=== PATIENT | male | born 1950 | race Caucasian/White ===

== ENCOUNTER 2017-02-21 08:16 | Outpatient (CLI) | payer MEDICARE ==
--- NOTE | 2017-02-21 10:19 | CT ---
CT OF THE CHEST AND ABDOMEN AND PELVIS WITH IV CONTRAST: Date: 02/21/17 INDICATION: History of melanoma. FINDINGS: The 1.1 x 0.9 cm nodule within the right upper lobe is stable. The 8.0 mm pulmonary nodule within the left upper lobe is stable. No new suspicious pulmonary nodule is evident. No enlarged lymph nodes ar e noted. Vascular calcifications of the thoracic aorta are similar. No focal hepatic lesion is evident. Bilateral renal cysts appear similar to the comparison in September. A drenal glands, pancreas, and spleen appear within normal limits. No pathologically enlarged lymph nodes are evident. Postsurgical change involving the lower anterior abdominal wall is similar. Scattered vascular calcifications are present involving the abdominopelvic vasculature. There is a moderate amount of retained stool within the colon. There is postsurgical change of a part ial colectomy with anastomotic suture line seen in the distal transverse colon. The appendix is mary beth l. No drainable fluid collection is evident. There is scattered degenerative and osteoarthritic change. No suspicious osteolytic or osteoblastic l esion is identified. IMPRESSION: 1. Stable examination. Pulmonary nodules within the left and right upper lobe are stable. 2. Stable bilateral renal cysts. 3. Stable postoperative change as above. POS: [facility]
[2017-02-21] MEDS ORDERED: Iopamidol 370 76% 100 ML VIAL ONE (13:53)
== END 2017-02-21 08:17 | disposition home or self-care (01) ==
LOC: CT 08:16
PROVIDERS: ATTEND Internal Medicine Hematology & Oncology
DX: C43.4 Malignant melanoma of scalp and neck (principal); C78.4 Secondary malignant neoplasm of small intestine; N28.1 Cyst of kidney, acquired; R91.8 Other nonspecific abnormal finding of lung field; Z98.890 Other specified postprocedural states
CPT/HCPCS: 71260; 74177

== ENCOUNTER 2017-04-08 16:45 | Emergency (ER) | payer MEDICARE ==
[2017-04-08 17:36] LABS: #Basophils 0.1 thou/uL (0.0-0.2); #Eosinphils 0.1 thou/uL (0.0-0.7); #Lymphocytes 2.6 thou/uL (1.20-3.40); #Monocytes 0.7 thou/uL (0.11-0.59); #Neutrophils 4.7 thou/uL (1.40-6.50); %Basophils 0.9 % (0.0-1.0); %Eosinophils 1.6 % (0.0-10.0); %Neutrophils 57.6 % (42.0-75.0); Hemoglobin 16.6 g/dL (14.0-18.0); Mean Corpuscular HGB CONC 33.1 g/dL (32.0-36.0); Mean Corpuscular Hemoglobin 30.9 pg (27.0-31.0); Mean Corpuscular Volume 93.4 fl (80.0-94.0); Mean Platelet Volume 7.2 fL (7.4-10.4); Platelet Count 158 thou/uL (130-400); RBC Distribution Width 12.3 % (11.5-14.5); Red Blood Cell (RBC) Count 5.37 mill/uL (4.70-6.10); White Blood Cell (WBC) Count 8.1 thou/uL (4.8-10.8)
--- NOTE | 2017-04-08 17:39 | RAD ---
PORTABLE CHEST: 04/08/17 HISTORY: Rapid heart rate. The lungs are clear. No infiltrate. No vascular congestion or edema. Heart size is normal. IMPRESSION: No acute finding. POS: [facility]
[2017-04-08] MEDS ORDERED: Diltiazem HCl 125 MG, Admixture Fee 1 EACH in Sodium Chloride 0.9% 100 ML IVPB SCH (18:00)
[2017-04-08 18:02] LABS: ALT (SGPT) 18 U/L (8-55); AST (SGOT) 20 U/L (5-34); Albumin 4.2 g/dL (3.4-4.8); Alkaline Phosphatase 71 U/L (40-150); Anion Gap 13 mmol/L (10-20); BUN (Urea Nitrogen) 16 mg/dL (8.4-25.7); Bilirubin, Total 0.4 mg/dL (0.2-1.2); CK (CPK) 66 U/L (30-200); Calc. Creatinine Clearance 0 mL/min (70-130); Calcium 9.7 mg/dL (7.8-10.44); Carbon Dioxide 26 mmol/L (23-31); Chloride 104 mmol/L (98-107); Estimated GFR-MDRD 61; Glucose 123 mg/dL (80-115); Potassium 4.7 mmol/L (3.5-5.1); Protein, Total 7.2 g/dL (5.8-8.1); Sodium 138 mmol/L (136-145)
[2017-04-08 18:04] LABS: Troponin I Less than 0.010 ng/mL (< 0.028)
== END 2017-04-08 19:17 | disposition home or self-care (01) ==
LOC: ERS 16:45
DX: I48.91 Unspecified atrial fibrillation (principal); I10 Essential (primary) hypertension; F17.220 Nicotine dependence, chewing tobacco, uncomplicated; Z79.899 Other long term (current) drug therapy
CPT/HCPCS: 36415; 71045; 80053; 82550; 82553; 83735; 84484; 85025; 93005; 96361; 96374; 99406; J7050

== ENCOUNTER 2017-06-06 05:55 | Day surgery (SDC) | payer MEDICARE, OTHER ==
[2017-06-03 13:12] VITALS: BMI 29.5
[2017-06-06 06:45] LABS: #Basophils 0.1 thou/uL (0.0-0.2); #Eosinphils 0.2 thou/uL (0.0-0.7); #Lymphocytes 1.7 thou/uL (1.20-3.40); #Monocytes 0.5 thou/uL (0.11-0.59); #Neutrophils 2.7 thou/uL (1.40-6.50); %Basophils 1.3 % (0.0-1.0); %Eosinophils 3.3 % (0.0-10.0); %Lymphocytes 34.2 % (21.0-51.0); %Monocytes 9.1 % (0.0-10.0); %Neutrophils 52.1 % (42.0-75.0); Hemoglobin 15.2 g/dL (14.0-18.0); Mean Corpuscular Volume 94.1 fl (80.0-94.0); Mean Platelet Volume 6.8 fL (7.4-10.4); Platelet Count 149 thou/uL (130-400); RBC Distribution Width 12.6 % (11.5-14.5); Red Blood Cell (RBC) Count 4.89 mill/uL (4.70-6.10); White Blood Cell (WBC) Count 5.1 thou/uL (4.8-10.8)
[2017-06-06 06:50] LABS: INR-International Normal Ratio 1.1; PTT 27.3 SEC (22.9-36.1); Prothrombin Time 13.8 SEC (12.0-14.7)
[2017-06-06] MEDS ORDERED: Heparin 10,000 UNITS/1 ML VIAL ONE (06:53)
[2017-06-06] MEDS ORDERED: Lidocaine 1% (PF) 30 ML VIAL ONE (06:56)
[2017-06-06 07:07] LABS: Anion Gap 11 mmol/L (10-20); BUN (Urea Nitrogen) 12 mg/dL (8.4-25.7); Calc. Creatinine Clearance 98 mL/min (70-130); Calcium 9.1 mg/dL (7.8-10.44); Carbon Dioxide 27 mmol/L (23-31); Chloride 104 mmol/L (98-107); Estimated GFR-MDRD 80; Glucose 111 mg/dL (80-115); Potassium 4.4 mmol/L (3.5-5.1); Sodium 138 mmol/L (136-145)
[2017-06-06] MEDS ORDERED: Propofol 500 MG/50 ML VIAL ONE (07:55)
[2017-06-06] MEDS ORDERED: Fentanyl 250 MCG/5 ML VIAL ONE (07:55)
[2017-06-06] MEDS ORDERED: Midazolam HCl 2 mg/2 ml Vial ONE (07:55)
[2017-06-06] MEDS ORDERED: Isoproterenol 0.2 MG/1 ML AMP ONE (09:04)
--- NOTE | 2017-06-06 11:38 | OP ---
DATE OF PROCEDURE: 06/06/2017 ELECTROPHYSIOLOGY STUDY ATTENDING PHYSICIAN: Dr. Lisa Johnston and Dr. Lm Vital REASON FOR PROCEDURE: Mr. Blue is a 67-year-old male with a history of sustained supraventricular arrhythmias who has EKG documented SVT here for EP study and possible ablation. PROCEDURE: The patient received deep sedation by Anesthesia specialist. After adequate sedation achieved both femoral venous area was prepped, draped, anesthetized with subcutaneous lidocaine. The left femoral vein was accessed x2 with a 6 and 8 Kosovan short sheath was introduced under ultrasound guidance. The right femoral vein was also accessed x1 with an 8 Kosovan short sheath introduced. Through the left sheath an octapolar catheter was advanced to the right ventricular His bundle and right atrial position. A Decapolar bidirectional CS catheter was placed in the CS. Mapping, pacing and recording was performed in each location. Isuprel was also used throughout the case to induce arrhythmias. FINDINGS: Baseline cycle length 1188 milliseconds, SC 178, QRS 82, QT 431. The AH check 67, HV 49 milliseconds. Sinus node recovery time is 1297 with sinus node recovery time was 200 milliseconds at baseline, AV Wenckebach was found to be 370 milliseconds without evidence of preexcitation, but lab on radioablation was seen at high atrial pacing speeds, especially with Isuprel. Retrograde Wenckebach cycle length was 600 milliseconds at baseline, with Isuprel has improved to 200 milliseconds range. Concentric VA conduction is noted. Dual AV dayna physiology was demonstrated with extra atrial stimulation. Following that, on isuprel with burst atrial pacing induced AV node reentry tachycardia with a very short VA time less than 80 milliseconds. The ventricular overdrive pacing produced VA VA response after entrainment. Following that the ThermoCool SF catheter was advanced to the right atrium. A 3D map of the right atrium, His bundle area and CS positions were obtained. With the radiofrequency ablation of the slow pathway was performed, 7 lesions were delivered with a total heart duration 121 milliseconds. Junctional beats were observed at the slow pathway area during the delivery of the radiofrequency energy. Following that a repeat testing on and off isuprel was performed demonstrating elimination of the slow pathway and no reinduction of the AV node reentry tachycardia was possible. At the end of the case, the cardiac silhouette did not change on fluoroscopy. The sheaths and catheters were removed in the [employer]. CONCLUSION: 1. 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 Inducible AV dayna reentry tachycardia. 3. Slow pathway modification eliminated inducibility of AVNRT tachycardia. 4. Normal sinus dayna and AV dayna function post ablation. 5. LB aberration noted with rapid atrial pacing with normal HV interval. PLAN: Routine post-procedure care. DARIANAD
[2017-06-06] MEDS ORDERED: PHENYLEPHRINE-NS 100 MCG/ML 10 ML SYRINGE ONE (14:51)
[2017-06-06] MEDS ORDERED: ePHEDrine/0.9% NaCl/PF SYRINGE 50 mg/10 ml ONE (14:51)
[2017-06-06] MEDS ORDERED: Lidocaine 2% MPF 10 ML AMP (For Epidural Use) ONE (14:51)
--- NOTE | 2017-06-06 20:06 | EKG ---
Test Reason : POST EP STUDY/ABLATI Blood Pressure : / mmHG Vent. Rate : 058 BPM Atrial Rate : 058 BPM P-R Int : 180 ms QRS Dur : 092 ms QT Int : 444 ms P-R-T Axes : 066 062 044 degrees QTc Int : 435 ms Sinus bradycardia Otherwise normal ECG When compared with ECG of 08-APR-2017 17:48, Vent. rate has decreased BY 29 BPM Confirmed by ANGIE CARLIN, . S. ([id number]) on 06/06/2017 8:06:27 PM Referred By: ALEN Confirmed By:DR. Ramon ADAMS MD
== END 2017-06-06 13:56 | disposition home or self-care (01) ==
LOC: CCL 05:55
PROVIDERS: ATTEND Internal Medicine Clinical Cardiac Electrophysiology
PROC: 4A023FZ Measurement of Cardiac Rhythm, Percutaneous Approach (ICD-10-PCS; principal; 2017-06-06)
PROC: 4A0234Z Measurement of Cardiac Electrical Activity, Percutaneous Approach (ICD-10-PCS; 2017-06-06)
PROC: 02583ZZ Destruction of Conduction Mechanism, Percutaneous Approach (ICD-10-PCS; 2017-06-06)
PROC: 02K83ZZ Map Conduction Mechanism, Percutaneous Approach (ICD-10-PCS; 2017-06-06)
DX: I47.1 Supraventricular tachycardia (principal); I10 Essential (primary) hypertension; F17.290 Nicotine dependence, other tobacco product, uncomplicated; Z79.82 Long term (current) use of aspirin; Z79.899 Other long term (current) drug therapy
CPT/HCPCS: 76942; 80048; 85025; 85610; 85730; 93005; 93613; 93623; 93653; C1730 ×3; C1769; 36415; 93010; J1644; J2001; J2250; J2704; J3010

== ENCOUNTER 2017-08-22 08:26 | Outpatient (CLI) | payer MEDICARE ==
[2017-08-22] MEDS ORDERED: ISOVUE-370 76%-LOCM 1 ML ONE (14:51)
== END 2017-08-22 08:27 | disposition home or self-care (01) ==
LOC: BICCT 08:26
PROVIDERS: ATTEND Internal Medicine Hematology & Oncology
DX: C78.4 Secondary malignant neoplasm of small intestine (principal); C43.4 Malignant melanoma of scalp and neck; R91.8 Other nonspecific abnormal finding of lung field
CPT/HCPCS: 71260; 74160; 82565

== ENCOUNTER 2017-09-06 11:42 | Outpatient (CLI) | payer MEDICARE, OTHER ==
--- NOTE | 2017-09-06 15:15 | PET ---
PET CT: HISTORY: A 67-year-old male with malignant melanoma. Exam was requested for restaging. The patient had resec tion of left upper lobe lung mass on 02/19/16 which was found to be a metastatic malignant melanoma an d also a history of small bowel resection which revealed metastatic melanoma to the small intestine. TECHNIQUE: PET scan with CT attenuation correction was performed from the vertex through the feet following the intravenous administration of 11 mCi [id number] in the right antecubital fossa. Imaging was performed after an uptake interval of 51 minutes. COMPARISON: PET CT dated 05/04/16. FINDINGS: There is continued hypermetabolic activity in the 1 cm left upper lobe nodule with an SUV of 3.2. Th ere has been interval increase in size of the nodule in the anterior aspect of the right upper lobe f rom 7 mm on the previous exam to 2 cm on the current study. This nodule demonstrates increased FDG l ocalization on the current exam with an SUV of 10.8. No dayna hypermetabolism is seen in the neck, chest, axillae, abdomen, pelvis, and inguinal regions o r popliteal regions. No hypermetabolic liver, adrenal, or skeletal lesions are identified. There is physiologic activity in the brain, heart, GI, and tracts. The CT scan used for attenuation demonstrates no evidence of pleural effusions or ascites. Bilateral renal cysts are present. IMPRESSION: Bilateral upper lobe pulmonary metastases. Interval worsening since 05/04/16. POS: [facility]
== END 2017-09-06 11:43 | disposition home or self-care (01) ==
LOC: PET 11:42
PROVIDERS: ATTEND Internal Medicine Hematology & Oncology
DX: C43.4 Malignant melanoma of scalp and neck (principal); C78.02 Secondary malignant neoplasm of left lung; C78.01 Secondary malignant neoplasm of right lung
CPT/HCPCS: 78816; A9552

== ENCOUNTER 2017-11-10 11:28 | Outpatient (CLI) | payer MEDICARE, OTHER ==
--- NOTE | 2017-11-11 11:25 | PET ---
PET CT: HISTORY: 67-year-old male with malignant melanoma. Exam requested for restaging. The patient had a resection o f the left upper lobe lung mass on , which was found to be metastatic malignant melanoma, and also history of small bowel resection which revealed metastatic melanoma to the small intestine. TECHNIQUE: PET scanning with CT attenuation correction was performed from the vertex through the feet following the intravenous administration of 11.5 mCi F18-FDG in the right antecubital fossa. Imaging was perfor med after an uptake interval of 51 minutes. COMPARISON: PET CT dated 09/06/17. FINDINGS: No dayna hypermetabolism is seen in the neck, chest, axilla, abdomen, pelvis, inguinal regions, and p opliteal regions. No hypermetabolic pulmonary nodules, liver, adrenal, or skeletal lesions are seen. The previously noted hypermetabolic activity in the pulmonary nodules has resolved in the interim. There is physiologic activity in the brain, GI and tracts. The CT scan used for attenuation correction demonstrates no evidence of pleural effusions or ascites. Bilateral renal cysts are noted. IMPRESSION: No evidence of metastatic disease. POS: [facility]
== END 2017-11-10 11:29 | disposition home or self-care (01) ==
LOC: PET 11:28
PROVIDERS: ATTEND Internal Medicine Hematology & Oncology
DX: C43.4 Malignant melanoma of scalp and neck (principal)
CPT/HCPCS: 78816; A9552

== ENCOUNTER 2018-03-06 16:51 | Inpatient (IN) | payer MEDICARE, OTHER ==
[2018-03-06] MEDS ORDERED: Ondansetron PF 4 MG/2 ML Vial ONE (17:45)
[2018-03-06] MEDS ORDERED: Morphine 4 MG/ML VIAL ONE ×2 (17:45→19:26)
[2018-03-06 17:47] LABS: #Eosinphils 0.1 thou/uL (0.0-0.7); #Lymphocytes 1.9 thou/uL (1.20-3.40); #Monocytes 0.7 thou/uL (0.11-0.59); #Neutrophils 7.2 thou/uL (1.40-6.50); %Basophils 0.2 % (0.0-1.0); %Eosinophils 0.9 % (0.0-10.0); %Lymphocytes 19.1 % (21.0-51.0); %Monocytes 6.7 % (0.0-10.0); %Neutrophils 73.1 % (42.0-75.0); Hemoglobin 16.8 g/dL (14.0-18.0); Mean Corpuscular HGB CONC 33.8 g/dL (32.0-36.0); Mean Corpuscular Hemoglobin 31.4 pg (27.0-31.0); Mean Corpuscular Volume 92.9 fL (78.0-98.0); Mean Platelet Volume 7.6 fL (7.4-10.4); Platelet Count 154 thou/uL (130-400); RBC Distribution Width 12.4 % (11.5-14.5); Red Blood Cell (RBC) Count 5.36 mill/uL (4.70-6.10); White Blood Cell (WBC) Count 9.8 thou/uL (4.8-10.8)
[2018-03-06 18:01] LABS: Bilirubin Negative (Negative); Blood, Urine Small (Negative); Clarity CLEAR (Clear); Glucose, Urine (Dipstick) Negative (Negative); Leukocyte Negative (Negative); Nitrite Negative (Negative); Protein, Urine (Dipstick) Negative (Neg-Trace); Specific Gravity, Urine 1.025 (1.002-1.036); Urobilinogen 0.2 mg/dL (0.2-1.0); pH, Urine 5.5 (5.0-9.0)
[2018-03-06 18:07] LABS: Bacteria/HPF None Seen HPF (None Seen); Hyaline Casts/LPF 0-3 HYALINE CAST LPF (0-3 Hyaline); Squamous Epithelial None Seen HPF (0-3); WBC/HPF 0-3 HPF (0-3)
[2018-03-06 18:13] LABS: ALT (SGPT) 16 U/L (8-55); AST (SGOT) 19 U/L (5-34); Albumin 4.2 g/dL (3.4-4.8); Alkaline Phosphatase 77 U/L (40-150); Anion Gap 15 mmol/L (10-20); BUN (Urea Nitrogen) 13 mg/dL (8.4-25.7); Bilirubin, Total 0.6 mg/dL (0.2-1.2); Calc. Creatinine Clearance 0 mL/min (70-130); Carbon Dioxide 28 mmol/L (23-31); Chloride 97 mmol/L (98-107); Estimated GFR-MDRD 71; Globulin 3.3 g/dL (2.4-3.5); Glucose 106 mg/dL (80-115); Lipase 36 U/L (8-78); Protein, Total 7.5 g/dL (5.8-8.1); Sodium 136 mmol/L (136-145)
[2018-03-06] MEDS ORDERED: Pantoprazole 40 MG VIAL ONE (19:04)
[2018-03-06] MEDS ORDERED: Pantoprazole 80 MG in Sodium Chloride 0.9% 100 ML IVP SCH (19:15)
--- NOTE | 2018-03-06 19:55 | CT ---
CT OF THE ABDOMEN AND PELVIS WITH IV CONTRAST: Date: 03-06-18 Provided Clinical History: Abdominal pain. FINDINGS: Comparison 07-29-16. The visualized lung bases are free of significant opacity. The solid abdominal organs demonstrate an unchanged CT appearance. There are several loops of adjacent small bowel within the anterior and right midabdomen which are mi ld to moderately dilated measuring up to about 3.4 cm. There is an abrupt transition from this dilate d bowel to a normal caliber at a suture line in the right lower quadrant. There is mural thickening a nd mild noncircumscribed fluid density involving the bowel immediately proximal to the suture line as well as bowel within the right lateral midabdomen. There is no evidence for pneumotosis or portal ve nous gas. There is no evidence for free intraperitoneal air. There is minimal free fluid present with in the pelvis. Vascular calcifications are seen involving the abdominal aorta. The osseous structure demonstrate no concerning lytic or blastic lesions. IMPRESSION: Findings compatible with an early or low grade small bowel obstruction with the obstruction at the le juanjo of the suture line in the right lower quadrant. POS: [facility]
[2018-03-06] MEDS ORDERED: Morphine 4 MG/ML VIAL SLOW IVP PRN (20:44)
[2018-03-06] MEDS ORDERED: Ondansetron PF 4 MG/2 ML Vial IVP PRN (20:45)
[2018-03-06] MEDS ORDERED: Ondansetron ODT 4 MG TAB SL PRN (20:45)
[2018-03-06] MEDS: D5 1/2 NS w/20 mEq KCL 1,000 ML IV SCH (20:57)
[2018-03-06 22:13] VITALS: BMI 28.5
[2018-03-07] MEDS: D5 1/2 NS w/20 mEq KCL 1,000 ML IV SCH ×3 (04:29→20:51)
[2018-03-07] MEDS ORDERED: Ondansetron PF 4 MG/2 ML Vial IVP PRN (12:14)
[2018-03-07] MEDS ORDERED: Morphine 4 MG/ML VIAL IV PRN (12:15)
--- NOTE | 2018-03-07 14:16 | EKG ---
Test Reason : Blood Pressure : / mmHG Vent. Rate : 076 BPM Atrial Rate : 076 BPM P-R Int : 150 ms QRS Dur : 086 ms QT Int : 384 ms P-R-T Axes : 046 049 056 degrees QTc Int : 432 ms Sinus rhythm with Premature supraventricular complexes Otherwise normal ECG Confirmed by KAHLIL CARLIN, JENN ([id number]), senior technical editor CHRISTIANO PLAZA ([id number]) on 03/07/2018 2:15:52 PM Referred By: Confirmed By:JENN GUILLORY MD
[2018-03-08] MEDS: D5 1/2 NS w/20 mEq KCL 1,000 ML IV SCH ×2 (04:53→13:25)
[2018-03-08] MEDS ORDERED: Pantoprazole 40 MG VIAL IVP SCH (09:00)
--- NOTE | 2018-03-08 12:01 | RAD ---
SMALL BOWEL SERIES: History: 67-year-old male with history for follow up small bowel obstruction. Comparison: 05-16-16 FINDINGS: NG tube is in place within the stomach. Gastrografin was introduced through the NG tube. There is pro gression of Gastrografin contrast through the small bowel entering the colon by one hour. No evidence for significant small bowel obstruction. IMPRESSION: No evidence for significant small bowel obstruction. Gastrografin contrast media entered the colon by one hour. POS: [facility]
--- NOTE | 2018-03-08 13:08 | HP ---
ADMISSION DIAGNOSIS: Small bowel obstruction. HISTORY OF PRESENT ILLNESS: The patient is a very pleasant 67-year-old white male, well known to myself. He presented to the emergency room late in the evening of March 06 (Tuesday). He complained of abdominal pain and distention and lack of flatus or bowel movement. He has a history of a small bowel resection and small bowel obstruction. It was concerned that he was having recurrent problem. In the emergency room, CT scan was obtained revealing what appeared to be findings consistent with small bowel obstruction with narrowing at one of his small bowel anastomoses. Nasogastric tube was placed with resolution of much of his abdominal discomfort. Nasogastric tube is continued now from the past day and I have ordered a small bowel follow-through for this morning. PAST MEDICAL HISTORY: 1. Malignant melanoma. 2. Hypertension. 3. Recent history of tachycardia. PAST SURGICAL HISTORY: 1. Two separate laparoscopic-assisted small bowel segmental resections in December 2015. One of these was a site of metastatic malignant melanoma. The other was the site of a Meckel diverticulum. 2. Left upper lobe lung resection in February 2016. 3. Segmental small bowel resection in July 2016 at the site of one of his anastomoses, thought to potentially be stenotic. MEDICATIONS: Metoprolol. ALLERGIES: NO KNOWN DRUG ALLERGIES. PERSONAL AND SOCIAL HISTORY: Does not smoke or drink alcohol. He is . He notes that he has dentures and at times does not chew his food well. REVIEW OF SYSTEMS: Otherwise, unremarkable. FAMILY HISTORY: Noncontributory. PHYSICAL EXAMINATION: VITAL SIGNS: The patient has been afebrile since his admission, pulse is in the 70s, and blood pressure is normal at 119/76. GENERAL: He is a well-developed, well-nourished, pleasant white male, resting in bed, in no acute distress. He is alert and oriented x3. HEAD, EYES, EARS, NOSE, AND THROAT: Unremarkable. NECK: Supple without mass or tenderness. LUNGS: Clear to auscultation throughout. CARDIAC: Regular rate and rhythm without murmur. ABDOMEN: Soft and nontender. This is maybe very mildly distended. Bowel sounds are present and normoactive. His prior incisions are very well healed and difficult to see. EXTREMITIES: Unremarkable. LABORATORY DATA: Admission laboratory studies on March 06 revealed a normal CBC and a normal comprehensive metabolic panel. ASSESSMENT: The patient with small bowel obstruction. This appears to be at one of his anastomoses. It is entirely possible that he has a second episode of anastomotic stenosis, although this would be quite rare. PLAN: Plan is to manage this conservatively with nasogastric tube and Gastrografin small bowel follow-through. If this goes through as anticipated and his diet will be advanced, he will be discharged home. If there is still persistent evidence for obstruction, then he may require surgery. He understands and agrees to proceed in this fashion. Job ID: [id number]
[2018-03-08 16:47] VITALS: BP 129/87; TEMP 98.4
== END 2018-03-08 18:51 | disposition home or self-care (01) | DRG 390 ==
LOC: ERS 16:51 → SURG A 19:34
PROVIDERS: ADMIT Specialist; ATTEND Specialist
PROC: 0D9670Z Drainage of Stomach with Drainage Device, Via Natural or Artificial Opening (ICD-10-PCS; principal; 2018-03-06)
DX: K56.609 Unspecified intestinal obstruction, unspecified as to partial versus complete obstruction (principal); Z90.49 Acquired absence of other specified parts of digestive tract; I10 Essential (primary) hypertension; Z85.820 Personal history of malignant melanoma of skin; Z90.2 Acquired absence of lung [part of]; Z72.0 Tobacco use
CPT/HCPCS: 74177; 74250; 80053; 81003; 81015; 82550; 83690; 83880; 84484; 85025; 93005; 96361; 96365; 96375; 96376; C9113; J2270; J2405; J7050

== ENCOUNTER 2018-03-16 08:15 | Outpatient (CLI) | payer MEDICARE, OTHER ==
--- NOTE | 2018-03-16 11:50 | PET ---
PET CT WHOLE BODY: COMPARISON: 11/10/2017. CLINICAL HISTORY: Melanoma. RADIOPHARMACEUTICAL: 11.1 mCi fluorine-18 FDG IV injected with 10 cc 0.9% sodium chloride. FINDINGS: There is appropriate biodistribution of radiotracer activity. There is no evidence of a new hypermet abolic mass of the neck, chest, abdomen, and pelvis. The imaged lower extremities do not reveal evid ence of a new hypermetabolic lesion. A focal area of increased metabolic activity about the left iliac chain region likely corresponds to misregistration artifact from the traversing left ureter as there is no soft tissue mass of this ophelia on demonstrated on the attenuation correction CT imaging. Scattered areas of linear parenchymal dens ity are present within the lungs that may relate to scar and/or volume loss. There is diffuse vascul ar calcification. Prior dilated loop of bowel at the low abdomen/pelvis has resolved. IMPRESSION: No scintigraphic evidence of metabolically active disease/melanotic metastasis. POS: [facility]
== END 2018-03-16 08:16 | disposition home or self-care (01) ==
LOC: PET 08:15
PROVIDERS: ATTEND Internal Medicine Hematology & Oncology
DX: C43.9 Malignant melanoma of skin, unspecified (principal)
CPT/HCPCS: 78816; A9552; 80053; 82248; 83615; 84100; 84443; 84550

== ENCOUNTER 2018-03-23 10:38 | Outpatient (CLI) | payer MEDICARE, OTHER ==
--- NOTE | 2018-03-23 12:09 | RAD ---
RIGHT KNEE TWO VIEWS: History: Chronic pain. Comparison: None. FINDINGS: Mild to moderate degenerative change involving the medial compartment. No significant joint effusion. No fracture. IMPRESSION: Mild to moderate degenerative change involving the medial compartment. POS: [facility]
--- NOTE | 2018-03-23 12:28 | RAD ---
TWO VIEWS LEFT KNEE: HISTORY: Chronic pain. COMPARISON: None. FINDINGS: Moderate degenerative changes involving the medial compartment. No fracture or malalignment. No sig nificant joint effusion. IMPRESSION: Moderate degenerative change involving the medial compartment. POS: [facility]
== END 2018-03-23 10:39 | disposition home or self-care (01) ==
LOC: SCSRAD 10:38
PROVIDERS: ATTEND Family Medicine
DX: M25.562 Pain in left knee (principal); M17.0 Bilateral primary osteoarthritis of knee

== ENCOUNTER 2018-07-11 11:31 | Outpatient (CLI) | payer MEDICARE, OTHER ==
--- NOTE | 2018-07-11 15:09 | PET ---
PET WITH CT WHOLE BODY: Clinical history: Melanoma Reference is made to 03/16/2018. Radiopharmaceutical: 12.4 mCi fluorine 18 FDG IV. There is appropriate biodistribution of radiotracer activity FINDINGS: There is mild increased metabolic activity, localizing to the left external auditory canal, without a n obvious mass by CT imaging. Finding is new from prior, with mild hypermetabolism (SUV of 3). There is increased activity likely localizing to the bilateral extraocular muscles, given symmetric a ppearance and distribution of activity, likely due to ocular movement during the exam. A new focus of mildly increased metabolic activity measuring 1.75 SUV is present and correlates to a new, small l inear density of the anterior right upper lobe. No additional significant interval detrimental change. IMPRESSION: 1. New area of hypermetabolic activity localizing to left external auditory canal, nonspecific. No ob vious mass of this region is evident by attenuation correction noncontrast CT imaging. Recommend correlation with direct visualization utilizing otoscopic examination to exclude possibility of a dev eloping cutaneous lesion in light of the patient's history. 2. Newly developed small linear focus of opacity of the anterior right upper lobe which reveals mild increased metabolic activity. This may relate to interval residua of recent infectious/inflammatory process. As a conservative measure, a three-month follow-up CT thorax is warranted to confirm resolut ion. Transcribed Date/Time: 07/11/2018 3:22 PM
== END 2018-07-11 11:32 | disposition home or self-care (01) ==
LOC: PET 11:31
PROVIDERS: ATTEND Internal Medicine Hematology & Oncology
DX: C43.9 Malignant melanoma of skin, unspecified (principal); R91.8 Other nonspecific abnormal finding of lung field
CPT/HCPCS: 78816; A9552

== ENCOUNTER 2018-12-12 11:14 | Outpatient (CLI) | payer MEDICARE, OTHER ==
--- NOTE | 2018-12-12 13:27 | RAD ---
CHEST TWO VIEWS: HISTORY: Melanoma of scalp and neck. Chronic cough. COMPARISON: 11/14/2018 FINDINGS: Fairly extensive bilateral poorly circumscribed linear and nodular parenchymal changes in both lungs, showing considerable worsening when compared to the prior CT scan of 11/14/2018. Findings suggest ei ther marked worsening of metastasis or inflammatory/infectious changes. IMPRESSION: Marked worsening of bilateral poorly circumscribed nodular and linear and interstitial opacity change s throughout both lungs, concerning for considerable worsening of bilateral metastatic disease and/or inflammatory or infectious changes. Correlate clinically. Short term followup for clearing or stabil ity. POS: [facility]
== END 2018-12-12 11:15 | disposition home or self-care (01) ==
LOC: SCSRAD 11:14
PROVIDERS: ATTEND Family Medicine
DX: R05 Cough (principal)
CPT/HCPCS: 71046

== ENCOUNTER 2018-12-27 07:59 | Outpatient (CLI) | payer MEDICARE, OTHER ==
[2018-12-27] MEDS ORDERED: ISOVUE-370 76%-LOCM 1 ML ONE (10:10)
--- NOTE | 2018-12-27 10:27 | CT ---
CT CHEST WITH INTRAVENOUS CONTRAST ENHANCEMENT: HISTORY: Melanoma of the scalp and neck. Followup. COMPARISON: 11/14/2018 FINDINGS: There has been significant worsening in the alveolar lung opacities, which are more peripheral in jay entation, involving both the upper and lower lung jack. There are small mediastinal nodes. All thes e are subcentimeter in size, slightly increased in number as compared to the prior exam, probably jus t reactive. No significant hilar or axillary adenopathy. There are tiny pleural effusions seen. The visualized liver parenchyma is unremarkable. Hypodensities involving both kidneys appear to repre sent cysts. Review of osseous structures show no lytic or blastic bony change. IMPRESSION: Significant worsening to bilateral upper and lower lobe alveolar opacities. Given the somewhat remote history of immunotherapy I would think this unlikely to represent an immunotherapy induced pneumonit is, although this would be a consideration. I think one of the more likely possibilities of this woul d be that this represents an organizing pneumonia. Obviously if the patient has symptoms then diffuse bacterial infection would also be a consideration. These findings were discussed with Dr. Berg. CODE CR POS: [facility]
== END 2018-12-27 08:00 | disposition home or self-care (01) ==
LOC: BICCT 07:59
PROVIDERS: ATTEND Internal Medicine Hematology & Oncology
DX: C43.4 Malignant melanoma of scalp and neck (principal); C78.4 Secondary malignant neoplasm of small intestine
CPT/HCPCS: 71260; Q9966

== ENCOUNTER 2019-01-01 09:56 | Outpatient (CLI) | payer MEDICARE, OTHER ==
--- NOTE | 2019-01-01 10:28 | RAD ---
2 views chest: 01/01/2019 COMPARISON: 12/12/2018 HISTORY: Shortness of breath FINDINGS: Numerous ill-defined nodular areas of alveolar opacity are noted, right greater than left, demonstrating a similar distribution when compared to the 12/12/2018 examination. There is no pneumothorax or pleural fluid. Heart and mediastinal contours appear stable. IMPRESSION: Nonspecific ill-defined pulmonary parenchymal opacities are noted within both lungs, righ t greater than left, unchanged when compared to the 12/12/2018 examination. These findings are better assessed on the 12/27/2018 CT exam. This could represent a diffuse nonspecific inflammatory/inf ectious process. Malignancy certainly cannot be excluded on the basis of this exam.
== END 2019-01-01 09:57 | disposition home or self-care (01) ==
LOC: RAD 09:56
PROVIDERS: ATTEND Internal Medicine Critical Care Medicine
DX: R06.00 Dyspnea, unspecified (principal)
CPT/HCPCS: 71046

== ENCOUNTER 2019-01-04 14:25 | Inpatient (IN) | payer MEDICARE, OTHER ==
[2019-01-04] MEDS ORDERED: Phenergan/Codeine 10-6.25mg/5ml UDCUP PO PRN (15:10)
[2019-01-04] MEDS ORDERED: Benzonatate 100 MG CAP PO SCH (15:15)
[2019-01-04] MEDS ORDERED: Famotidine 20 MG TAB PO SCH (15:15)
[2019-01-04 15:32] LABS: Hemoglobin 17.4 g/dL (14.0-18.0); Mean Corpuscular HGB CONC 33.9 g/dL (32.0-36.0); Mean Corpuscular Hemoglobin 30.4 pg (27.0-31.0); Mean Corpuscular Volume 89.6 fL (78.0-98.0); Mean Platelet Volume 6.8 fL (7.4-10.4); Platelet Count 262 thou/uL (130-400); RBC Distribution Width 13.1 % (11.5-14.5); Red Blood Cell (RBC) Count 5.73 mill/uL (4.70-6.10); White Blood Cell (WBC) Count 14.9 thou/uL (4.8-10.8)
[2019-01-04 15:51] LABS: Band 9 % (5-11); Lymphocytes 9 % (21-51); MDiff Complete? YES; Neutrophil 80 % (42-75); Platelet Morphology Comment Appears Adequate; RBC Morphology Normal; Reactive Lymphocytes 2 % (0-10)
[2019-01-04 15:54] LABS: ALT (SGPT) 26 U/L (8-55); AST (SGOT) 18 U/L (5-34); Albumin 3.9 g/dL (3.4-4.8); Alkaline Phosphatase 77 U/L (40-110); Anion Gap 16 mmol/L (10-20); BUN (Urea Nitrogen) 16 mg/dL (8.4-25.7); Bilirubin, Total 0.5 mg/dL (0.2-1.2); Calc. Creatinine Clearance 0 mL/min (70-130); Calcium 8.7 mg/dL (7.8-10.44); Carbon Dioxide 22 mmol/L (23-31); Chloride 99 mmol/L (98-107); Estimated GFR-MDRD 72; Globulin 3.2 g/dL (2.4-3.5); Glucose 126 mg/dL (80-115); Magnesium 2.1 mg/dL (1.6-2.6); Phosphorus 4.3 mg/dL (2.3-4.7); Potassium 4.5 mmol/L (3.5-5.1); Protein, Total 7.1 g/dL (5.8-8.1); Sodium 132 mmol/L (136-145)
[2019-01-04] MEDS: Cefepime 2 GM in Sodium Chloride 0.9% 100 ML IVPB SCH ×2 (16:56→22:36)
[2019-01-04] MEDS: methylPREDNISolone Sod Succ 40 MG VIAL IVP SCH ×2 (16:57→20:25)
[2019-01-04] MEDS: Sodium Chloride 0.9% 1,000 ML IV SCH (17:03)
[2019-01-04 17:45] VITALS: BMI 27.0
[2019-01-04] MEDS: Benzonatate 100 MG CAP PO SCH (20:24)
[2019-01-04] MEDS: Famotidine 20 MG TAB PO SCH (20:24)
--- NOTE | 2019-01-04 20:52 | HP ---
DATE: 01/04/2019 HISTORY OF PRESENT ILLNESS: Su is a pleasant 68-year-old male, history of melanoma. He has had melanoma involving bowel and lung and actually has responded very well to immunotherapy. He recently had asymptomatic subtle abnormality on chest CT. A repeat chest CT was ordered a month later. Shortly after the 1st CT, he started developing a bad cough and this has progressed. He was seen by Dr. Berg last week, started on steroids and antibiotics, and seen by me early this week. He thought maybe he was feeling a little bit better and certainly no worse. Chest radiograph compared to the last film also looked slightly improved. He called today saying he in spite of the antibiotics and steroids he received, thinks he is coughing more. His thinks he is coughing more and looks worse. 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 His first melanoma was on his neck. Second one was in his small bowel, and the third one was in the lung. FAMILY HISTORY: Not obtained. SOCIAL HISTORY: Drinks occasionally. He is nonsmoker. ALLERGIES: HE HAS NO DRUG ALLERGIES. REVIEW OF SYSTEMS: A 10-point review of systems completed is otherwise negative , remarkable only for cough. He has had no hemoptysis. PHYSICAL EXAMINATION: GENERAL: He has had melanoma involving bowel and lung and actually has responded very well to immunotherapy. VITAL SIGNS: Blood pressure is 130/80, pulse is 100, respiratory rate is 18, oximetry is 90% to 92% on room air in the office. HEENT: Pupils are equal. Sclerae are anicteric. NECK: Supple. LUNGS: Clear. HEART: Regular rhythm. S1 and S2 are normal. ABDOMEN: Soft and nontender. EXTREMITIES: Without clubbing, cyanosis, or edema. LABORATORY DATA: CT and chest radiographs have been reviewed with him. IMPRESSION: ? pneumonia versus bronchiolitis obliterans versus recurrence of melanoma. It would be extremely unusual for him to have recurrence of melanoma that made his radiograph this abnormal over a 1-month period of time. A delayed pneumonitis secondary to immunotherapy at this point would be unusual since he has been off immunotherapy since July. I do not think we have any choice other than to put him in the hospital at this point, try to suppress his cough, treat him with broad-spectrum antimicrobial therapy, increase his IV steroids, stat nebulizer treatments since he is complaining of a tight feeling in his chest and have him undergo bronchoscopy tomorrow with possible biopsies and washings. Risks of bleeding, infection, lung collapse and least likely were explained. He will likely need airway support with the procedure, i.e., intubation. We will have Anesthesia assist with the procedure. Job ID: [id number] MTDD
[2019-01-05] MEDS: methylPREDNISolone Sod Succ 40 MG VIAL IVP SCH ×4 (02:09→20:41)
[2019-01-05] MEDS: Sodium Chloride 0.9% 1,000 ML IV SCH ×3 (05:15→20:41)
[2019-01-05] MEDS: Cefepime 2 GM in Sodium Chloride 0.9% 100 ML IVPB SCH ×3 (05:57→23:00)
[2019-01-05] MEDS ORDERED: Fentanyl 100 MCG/2 ML VIAL ONE (07:48)
[2019-01-05] MEDS ORDERED: Midazolam HCl 2 mg/2 ml Vial ONE (07:48)
[2019-01-05] MEDS ORDERED: Prevnar 13-Val Conj/PF 0.5 ML SYRINGE IM ONE (09:00)
[2019-01-05] MEDS: Benzonatate 100 MG CAP PO SCH ×3 (09:00→20:40)
[2019-01-05] MEDS ORDERED: FLU VACC TS2019-20(65YR UP)/PF 180 MCG/0.5 ML SYRINGE IM ONE (09:00)
--- NOTE | 2019-01-05 10:04 | RAD ---
RADIOGRAPH CHEST 1 VIEW: DATE: 01/05/2019 TIME: 9:26 AM HISTORY: 68 year old male status post bronchoscopy COMPARISON: 01/01/2019 FINDINGS: Multifocal patchy ill-defined nodular bilateral infiltrates, more confluent on the right than left. T he confluence has worsened at the right base. No pneumothorax. No pulmonary edema. No other interval change. IMPRESSION: 1. No pneumothorax. 2. Multifocal bilateral patchy infiltrates. 3. Interval worsening of confluence of infiltrates at right base.
[2019-01-05] MEDS: Famotidine 20 MG TAB PO SCH ×2 (11:07→20:40)
[2019-01-05] MEDS ORDERED: Ondansetron PF 4 MG/2 ML Vial ONE (13:13)
[2019-01-05] MEDS ORDERED: Lidocaine 1% PF 5 ML VIAL ONE (13:13)
[2019-01-05] MEDS ORDERED: PROPOFOL 200 MG/20 ML VIAL ONE (13:13)
[2019-01-05] MEDS ORDERED: Rocuronium Bromide 10 MG/ML (10ML VIAL) ONE (13:13)
[2019-01-05] MEDS ORDERED: Glycopyrrolate 0.2 MG/ML 5 ML SYRINGE ONE (13:13)
[2019-01-05 13:14] LABS: Bilirubin Negative (Negative); Blood, Urine Negative (Negative); Clarity Clear (Clear); Glucose, Urine (Dipstick) Normal (Negative); Leukocyte Negative Leu/uL (Negative); Nitrite Negative (Negative); Protein, Urine (Dipstick) 20 mg/dL (Neg-Trace); Urobilinogen Normal mg/dL (Less than 2)
--- NOTE | 2019-01-05 15:20 | OP ---
DATE OF PROCEDURE: 01/05/2019 PROCEDURES PERFORMED: Fiberoptic bronchoscopy with a lavage of the right middle lobe, brushings to right lower lobe, multiple biopsies to right lower lobe. DESCRIPTION OF PROCEDURE: The patient was sedated after being identified in the Day Surgery area and consent forms were signed. He was sedated with Anesthesia. He was under general endotracheal anesthesia. Under fluoroscopy, the bronchoscope was introduced and passed down the right middle lobe. Right middle lobe was lavaged with approximately 80 mL of saline, approximately 30 mL returned. The right lower lobe was brushed for pathology. Then, the right lower lobe was biopsied x3 for pathology. The patient tolerated the procedure well. There was minimal bleeding from right lower lobe. This had stopped by the completion of the procedure. Quick look with fluoro did not show pneumothorax. We will do a chest x-ray when he returns to PACU. Job ID: [id number]
[2019-01-06] MEDS: methylPREDNISolone Sod Succ 40 MG VIAL IVP SCH ×4 (03:25→19:50)
[2019-01-06] MEDS: Cefepime 2 GM in Sodium Chloride 0.9% 100 ML IVPB SCH ×3 (06:05→22:55)
[2019-01-06] MEDS: Famotidine 20 MG TAB PO SCH ×2 (09:22→19:50)
[2019-01-06] MEDS: Enoxaparin Sodium 40 MG/0.4 ML SYRINGE SC SCH (09:23)
[2019-01-06] MEDS: Benzonatate 100 MG CAP PO SCH ×3 (09:23→19:50)
--- NOTE | 2019-01-06 12:56 | PRG ---
DATE OF SERVICE: 01/06/2019 SUBJECTIVE: This morning, he is awake, alert, and responsive. OBJECTIVE: VITAL SIGNS: His sats are 93% on room air, pulse 103, temperature 98, blood pressure 130/70. HEENT: He is short of breath. CHEST: No wheezing or crackles. CARDIAC: Normal S1 and S2. No gallops. ABDOMEN: No masses. IMPRESSION: Abnormal x-ray, bilateral interstitial infiltrates, etiology unclear. History of melanoma. Pulmonary adrian, continue supportive care. Await path. Job ID: [id number]
[2019-01-06] MEDS: Sodium Chloride 0.9% 1,000 ML IV SCH (13:11)
[2019-01-07] MEDS: methylPREDNISolone Sod Succ 40 MG VIAL IVP SCH ×2 (03:16→09:38)
[2019-01-07] MEDS: Cefepime 2 GM in Sodium Chloride 0.9% 100 ML IVPB SCH (06:29)
[2019-01-07] MEDS: Benzonatate 100 MG CAP PO SCH ×3 (09:36→20:05)
[2019-01-07] MEDS: Famotidine 20 MG TAB PO SCH ×2 (09:36→20:05)
[2019-01-07] MEDS: Enoxaparin Sodium 40 MG/0.4 ML SYRINGE SC SCH (09:37)
--- NOTE | 2019-01-07 11:46 | PRG ---
DATE OF SERVICE: 01/07/2019 SUBJECTIVE: John Blue this morning is awake, alert, and responsive. He is less short of breath. OBJECTIVE: VITAL SIGNS: Saturations 100% on room air, temperature 97, blood pressure 147/79, respirations 18. CHEST: No wheezing or crackles. CARDIAC: Normal S1 and S2. No gallops. ABDOMEN: No masses. IMPRESSION AND PLAN: Diffuse belly infiltrates, etiology unclear. We will switch him over to oral antibiotics since all cultures are negative and prednisone. Await biopsy results. Job ID: [id number]
[2019-01-08] MEDS ORDERED: predniSONE 20 MG TAB PO SCH (08:00)
[2019-01-08] MEDS: Benzonatate 100 MG CAP PO SCH ×2 (08:59→15:10)
[2019-01-08] MEDS: Enoxaparin Sodium 40 MG/0.4 ML SYRINGE SC SCH (08:59)
[2019-01-08] MEDS: Famotidine 20 MG TAB PO SCH (08:59)
[2019-01-08 14:09] LABS: Cytoplasmic (C-ANCA) <1:20 titer (Neg:<1:20); Myeloperoxidase AutoAbs <9.0 U/mL (0.0-9.0); Perinuclear (P-ANCA) <1:20 titer (Neg:<1:20); Proteinase-3 AutoAbs Less than 3.5 U/mL (0.0-3.5)
[2019-01-08 15:26] VITALS: BP 154/88; TEMP 97.9
--- NOTE | 2019-01-08 20:14 | DIS ---
DATE OF ADMISSION: 01/04/2019 DATE OF DISCHARGE: 01/08/2019 DISCHARGE DIAGNOSIS: Keytruda pneumonitis. Please see history and physical for details. HOSPITAL COURSE: Briefly, Mr. Blue failed outpatient management of his severe cough with radiographic abnormalities. He was admitted, underwent bronchoscopy with transbronchial biopsies, brushings, and lavage. No pathogens were identified. All specimens were negative for malignancy. To refresh, he has had 3 different bouts of melanoma. He is discharged home on 40 mg of prednisone twice a day. He has had a 10-day course of antibiotics at this point, so I do not feel ongoing antibiotics are indicated. He will follow up with me in one week with a chest x-ray. Job ID: [id number]
--- NOTE | 2019-01-10 07:48 | PQF ---
[employer] Win[employer] Viewer JOSE BOWERS PERNELL PIERRE MD [id number] CLINICAL DOCUMENTATION CLARIFICATION FORM: POST DISCHARGE Addendum to original discharge summary date: ____ Late entry note date: __ DATE: 01/10/2019 ATTN:PERNELL PIERRE MD Please exercise your independent, professional judgment in responding to the clarification form. Clinical indicators are provided on the bottom of this form for your review Please check appropriate box(s): [ ] Biopsy of right lower lobe lung [ ] Biopsy of right lower lobe bronchus [ ] Biopsy of right lung [ ] Other site [ ] Unable to determine For continuity of documentation, please document condition throughout progress notes and discharge summary. Thank You. CLINICAL INDICATORS - SIGNS / SYMPTOMS / LABS -Multiple biopsies to the lower lobe- OP report, 01/05, PERNELL PIERRE MD -Bronchoscope was introduced and passed down the right middle lobe, Right middle lobe was lavaged-OP report, 01/05, PERNELL PIERRE MD -The right lower lobe was brushed for pathology, then the right lower lobe biopsied x3 for pathology-OP report, 01/05, PERNELL PIERRE MD -Lung right, transbronchial biopsy: being bronchial epithelium and stroma- Pathology report, 01/08 RISK FACTORS - Keytruda pneumonitis-DS, 01/08, Miguelangel Malcolm MD - he had 3 different bouts of melanoma-DS, 01/08, Miguelangel Malcolm MD TREATMENTS: -Chest-Xray -Bronchoscopy-OP report, 01/05, Miguelangel Malcolm MD [employer] (This form is maintained as a part of the permanent medical record) 2014 [employer]. All Rights Reserved Blanca Salcedo [not provided] [not provided] MTDD
[2019-01-10 09:11] LABS: Aspergillus fumigatus Negative (Negative); Aureobasidium pullalans IgG Negative (Negative); Micropolyspora faeni Negative (Negative); Pigeon Droppings IgG Negative (Negative); T sacchari Negative (Negative); T vulgaris Negative (Negative)
[2019-01-10 09:11] LABS: Fungus Stain Final report (.)
[2019-01-10 19:08] LABS: A. flavus Negative (Neg:<1:1); A. fumigatus Negative (Neg:<1:1); A. niger Negative (Neg:<1:1); Blastomyces AB Negative (Neg:<1:1)
== END 2019-01-08 15:40 | disposition home or self-care (01) | DRG 206 ==
LOC: T4-A 14:31
PROVIDERS: ADMIT Internal Medicine Critical Care Medicine; ATTEND Internal Medicine Critical Care Medicine
PROC: 0B9D8ZX Drainage of Right Middle Lung Lobe, Via Natural or Artificial Opening Endoscopic, Diagnostic (ICD-10-PCS; principal; 2019-01-05)
PROC: 0BD68ZX Extraction of Right Lower Lobe Bronchus, Via Natural or Artificial Opening Endoscopic, Diagnostic (ICD-10-PCS; 2019-01-05)
DX: J70.4 Drug-induced interstitial lung disorders, unspecified (principal); I10 Essential (primary) hypertension; T45.1X5A Adverse effect of antineoplastic and immunosuppressive drugs, initial encounter; Z85.820 Personal history of malignant melanoma of skin; Z98.42 Cataract extraction status, left eye
CPT/HCPCS: 36415; 71045; 71046; 76000; 80053; 81003; 83520; 83735; 84100; 85007; 85027; 85652; 86256; 86331; 86602; 86606; 86612; 86635; 86671; 86698; 87070; 87102; 87116; 87205; 87206; 87385; 88112; 88305; 88312; 94640; 94760; J0692; J1650; J1956; J2001; J2250; J2405; J2704; J2920; J3010; J3490; J7512; J7620

== ENCOUNTER 2019-01-16 08:07 | Outpatient (CLI) | payer MEDICARE, OTHER ==
--- NOTE | 2019-01-16 08:25 | RAD ---
XR Chest Pa Lat @ [facility] History: Dyspnea Comparison: Radiograph January 05, 2019 Findings: Improved aeration of both lungs. These be some linear markings throughout the right middle lobe and right lower lobe. No pneumothorax. No acute osseous abnormality. Impression: Improved aeration suggesting resolving organizing pneumonia or therapy induced pneumoniti s. Metastatic hemorrhage is felt less likely.
== END 2019-01-16 08:08 | disposition home or self-care (01) ==
LOC: RAD 08:07
PROVIDERS: ATTEND Internal Medicine Critical Care Medicine
DX: R06.00 Dyspnea, unspecified (principal); R04.89 Hemorrhage from other sites in respiratory passages
CPT/HCPCS: 71046

== ENCOUNTER 2019-01-23 09:14 | Outpatient (CLI) | payer MEDICARE ==
--- NOTE | 2019-01-23 10:17 | RAD ---
CHEST TWO VIEWS: HISTORY: Dyspnea. COMPARISON: Radiograph from 01/16/2019 FINDINGS: Continued signs of improved aeration of the lungs. No pneumothorax. No effusion. No acute superimpose d opacity. IMPRESSION: Continued improvement in aeration of the lungs. Some linear opacities still persist over the lingula and right lower lobe which may reflect developing scar. POS: [facility]
== END 2019-01-23 09:15 | disposition home or self-care (01) ==
LOC: RAD 09:14
PROVIDERS: ATTEND Internal Medicine Critical Care Medicine
DX: R06.00 Dyspnea, unspecified (principal); R91.8 Other nonspecific abnormal finding of lung field
CPT/HCPCS: 71046

== ENCOUNTER 2019-02-05 09:38 | Outpatient (CLI) | payer MEDICARE, OTHER ==
--- NOTE | 2019-02-05 09:45 | RAD ---
CHEST 2 VIEWS: COMPARISON: 01/23/2019. HISTORY: Dyspnea. FINDINGS: Elongation of the aorta. Normal cardiac silhouette. Patchy interstitial and alveolar opacities. Opaci fication is felt to be superimposed upon chronic change. No pleural effusion or pneumothorax. IMPRESSION: Patchy interstitial and alveolar opacities. Transcribed Date/Time: 02/05/2019 9:48 AM
== END 2019-02-05 09:39 | disposition home or self-care (01) ==
LOC: RAD 09:38
PROVIDERS: ATTEND Internal Medicine Critical Care Medicine
DX: R06.00 Dyspnea, unspecified (principal); J98.4 Other disorders of lung
CPT/HCPCS: 71046

== ENCOUNTER 2019-05-09 09:49 | Outpatient (CLI) | payer MEDICARE, OTHER ==
--- NOTE | 2019-05-09 10:50 | RAD ---
PA AND LATERAL CHEST: Date: 05/09/2019 HISTORY: Dyspnea. COMPARISON: 02/05/19 study. FINDINGS: Heart size within normal limits. Aorta is tortuous. There is some atherosclerotic change. Lungs are c lear of any infiltrates. There are arthritic changes of the spine. IMPRESSION: No active intrathoracic disease. Interstitial changes noted on the prior examination have essentially resolved. POS: [facility]
== END 2019-05-09 09:50 | disposition home or self-care (01) ==
LOC: RAD 09:49
PROVIDERS: ATTEND Internal Medicine Critical Care Medicine
DX: R06.00 Dyspnea, unspecified (principal)
CPT/HCPCS: 71046

== ENCOUNTER 2019-06-20 09:33 | Outpatient (CLI) | payer MEDICARE, OTHER ==
[2019-06-20] MEDS ORDERED: Iopamidol 370 76% 100 ML VIAL ONE (10:14)
--- NOTE | 2019-06-20 11:03 | CT ---
CT CHEST WITH CONTRAST CT ABDOMEN WITH COTNRAST CT PELVIS WITH CONTRAST: HISTORY: Malignant neoplasm of scalp. Secondary neoplasm of small intestine. COMPARISON: CT chest 12/27/2018. PET CT 07/11/2018 for reference. FINDINGS: Above the lungs are areas of mosaic attenuation which can be seen with small-vessel or airway disease . The parenchymal opacities are markedly improved from the comparison exam with minimal opacities re maining and likely sequelae of scar or resolving organizing pneumonia. No pneumothorax. No effusion . No concerning new pulmonary nodule. The tracheobronchial tree is patent. The aortic contour is normal. The pulmonary trunk size is norm al. No mediastinal adenopathy. No pericardial effusion. The liver, gallbladder, spleen, and pancreas are unremarkable. The renal cysts are similar. No jagdish d renal mass. No hydroureteral nephrosis. The abdominal aorta contour is without aneurysmal dilatation. Mild atherosclerotic plaque. No dilated loops of large or small bowel. No mesenteric adenopathy. No free intraperitoneal gas or fluid. The right mid abdomen and small anastomosis is unremarkable. Sternum and manubrium are intact. Mode rate degenerative disease of L5-S1 with degenerative disk space height loss and disk-osteophyte compl ex as well as facet arthropathy. No suspicious osteolytic or osteoblastic lesions. Moderate entheso pathic changes of both adductor longus tendons of the prepubic plate. IMPRESSION: 1. Interval resolution of organizing pneumonia with minimal scar remaining. 2. No evidence for metastatic disease within the chest, abdomen, or pelvis. POS: [facility]
== END 2019-06-20 09:34 | disposition home or self-care (01) ==
LOC: BICCT 09:33
PROVIDERS: ATTEND Internal Medicine Hematology & Oncology
DX: C43.4 Malignant melanoma of scalp and neck (principal); C78.4 Secondary malignant neoplasm of small intestine; J18.9 Pneumonia, unspecified organism; L90.5 Scar conditions and fibrosis of skin
CPT/HCPCS: 71260; 74177; Q9967

== ENCOUNTER 2019-09-18 08:14 | Outpatient (CLI) | payer MEDICARE, OTHER ==
--- NOTE | 2019-09-18 09:18 | CT ---
Exam: Chest CT with contrast Abdomen CT with contrast Pelvic CT with contrast HISTORY: Melanoma. Secondary malignant neoplasm of small intestine. Correlation: None COMPARISON: 06/20/2019, chest CT 12/27/2018 FINDINGS: Chest CT: Mediastinum: No mass, lymphadenopathy or hematoma Aorta: Normal caliber. No periaortic fat stranding. Heart: Normal heart size. No significant pericardial fluid Trachea and central bronchi: Patent Pleural spaces: No pleural effusion. Right lung: Minimal scar and atelectasis. Minimal groundglass opacities. No suspicious masses, consol idation or nodules. Left lung:Patchy groundglass opacities in the left upper lobe, unchanged. Minimal scarring and atelec tasis. No suspicious masses, consolidation or nodules. Pneumothorax: None Abdomen CT: Gallbladder: Unremarkable Portal vein: Patent Liver: Appropriate enhancement. Spleen: Appropriate enhancement Pancreas: Appropriate enhancement Adrenal glands: Appropriate enhancement Lymphadenopathy: No gastrohepatic, retrocrural or periportal lymphadenopathy Kidneys: Symmetric enhancement. Bilaterally no obstructive uropathy. Exophytic bilateral renal cysts are redemonstrated. Mesentery: No mass, lymphadenopathy, free air or free fluid Alimentary canal: Unremarkable gastric mucosa. Multiple normal caliber small bowel loops. Small bowel anastomosis is noted in the left upper quadrant. Additional bowel anastomosis is noted in the right. No bowel obstruction. No mucosal abnormality. Normal ileocecal junction. Normal caliber append ix. Scattered fecal material in the nondistended, nondilated colon. Pelvis CT: No mass, lymphadenopathy, free air or free fluid. Normal-appearing urinary bladder. Osseous structures:No lytic or blastic lesions. IMPRESSION: 1. No evidence of metastatic disease in the chest, abdomen or pelvis. 2. Stable groundglass opacities in the left upper lobe likely representing sequelae of previous infil trate.
[2019-09-18] MEDS ORDERED: Iopamidol-370 76% 500 ML 1 ML ONE (13:40)
== END 2019-09-18 08:15 | disposition home or self-care (01) ==
LOC: BICCT 08:14
PROVIDERS: ATTEND Internal Medicine Hematology & Oncology
DX: C43.4 Malignant melanoma of scalp and neck (principal); C78.4 Secondary malignant neoplasm of small intestine; R91.8 Other nonspecific abnormal finding of lung field
CPT/HCPCS: 71260; 74177; 82565; Q9967

== ENCOUNTER 2019-12-25 08:37 | Outpatient (CLI) | payer MEDICARE, OTHER ==
--- NOTE | 2019-12-25 10:13 | CT ---
CT CHEST WITH IV CONTRAST CT ABDOMEN WITH IV CONTRAST CT PELVIS WITH IV CONTRAST: HISTORY: Malignant melanoma of scalp and neck. Secondary malignant neoplasm of small intestine. COMPARISON: 09/18/2019. FINDINGS: No mediastinal, hilar, axillary,, abdominal, pelvic, or inguinal lymphadenopathy is seen. There are vascular calcifications without evidence of aneurysmal dilatation of the thoracoabdominal aorta. The re are degenerative changes in the thoracolumbar spine. No osteolytic or osteoblastic lesions are se en. No pleural or pericardial effusions are seen. No ascites is identified. No pneumothoraces or pneumopericardium or pneumoperitoneum are seen. No focal areas of consolidation or lung masses or nodules are noted. The liver, spleen, pancreas, and adrenal glands are normal. No calcified gallstones are noted. Ther e are bilateral renal cysts. The small bowel loops are not abnormally dilated. A normal-appearing appendix is present. There is a small fat-containing inguinal hernia. IMPRESSION: No evidence of metastatic disease in the chest, abdomen, or pelvis. POS: [facility]
[2019-12-25] MEDS ORDERED: Iopamidol-370 76% 500 ML 1 ML ONE (13:29)
== END 2019-12-25 08:38 | disposition home or self-care (01) ==
LOC: BICCT 08:37
PROVIDERS: ATTEND Internal Medicine Hematology & Oncology
DX: C43.4 Malignant melanoma of scalp and neck (principal); C78.4 Secondary malignant neoplasm of small intestine
CPT/HCPCS: 71260; 74177

== ENCOUNTER 2020-04-04 06:32 | Emergency (ER) | payer MEDICARE, OTHER ==
[2020-04-04 06:55] LABS: Bacteria/HPF None Seen HPF (None Seen); Bilirubin Negative (Negative); Blood, Urine Trace (Negative); Clarity Clear (Clear); Glucose, Urine (Dipstick) Normal (Negative); Ketone, Urine Negative (Negative); Leukocyte Negative Leu/uL (Negative); Nitrite Negative (Negative); Protein, Urine (Dipstick) 50 mg/dL (Neg-Trace); Specific Gravity, Urine 1.031 (1.002-1.036); Squamous Epithelial None Seen HPF (0-3); Urobilinogen Normal mg/dL (Less than 2); WBC/HPF 0-3 HPF (0-3); pH, Urine 6.5 (5.0-9.0)
[2020-04-04 07:43] LABS: ALT (SGPT) 14 U/L (8-55); AST (SGOT) 16 U/L (5-34); Albumin 4.3 g/dL (3.4-4.8); Alkaline Phosphatase 72 U/L (40-110); Anion Gap 17 mmol/L (10-20); BUN (Urea Nitrogen) 16 mg/dL (8.4-25.7); Bilirubin, Total 0.6 mg/dL (0.2-1.2); Calc. Creatinine Clearance 0 mL/min (70-130); Calcium 9.1 mg/dL (7.8-10.44); Carbon Dioxide 26 mmol/L (23-31); Chloride 100 mmol/L (98-107); Globulin 2.8 g/dL (2.4-3.5); Glucose 167 mg/dL (80-115); Lipase 39 U/L (8-78); Potassium 4.4 mmol/L (3.5-5.1); Protein, Total 7.1 g/dL (5.8-8.1); Sodium 139 mmol/L (136-145)
[2020-04-04 08:08] LABS: #Lymphocytes 1.2 thou/uL (1.20-3.40); #Monocytes 0.6 thou/uL (0.11-0.59); #Neutrophils 9.3 thou/uL (1.40-6.50); %Basophils 0.2 % (0.0-1.0); %Eosinophils 0.2 % (0.0-10.0); %Lymphocytes 11.1 % (21.0-51.0); %Monocytes 5.1 % (0.0-10.0); %Neutrophils 83.5 % (42.0-75.0); Hemoglobin 16.8 g/dL (14.0-18.0); Mean Corpuscular HGB CONC 32.2 g/dL (32.0-36.0); Mean Corpuscular Hemoglobin 29.9 pg (27.0-31.0); Mean Platelet Volume 8.2 fL (7.4-10.4); Platelet Count 156 thou/uL (130-400); RBC Distribution Width 12.5 % (11.5-14.5); White Blood Cell (WBC) Count 11.1 thou/uL (4.8-10.8)
--- NOTE | 2020-04-04 08:50 | CT ---
CT ABDOMEN AND PELVIS WITH IV CONTRAST 04/04/2020 CLINICAL INFORMATION: Abdominal pain which started one day ago. History of bowel obstruction. COMPARISON: 12/25/2019 Technique: Multiple contiguous axial CT images are obtained through the abdomen and pelvis with IV contrast. Cor onal reformatted images are provided. FINDINGS: Lower Chest: There are bibasilar linear densities which may be related to combination of minimal scar ring and atelectasis. Vessels: Vascular calcifications are seen in the abdominal aorta and involving the iliac arteries as well as the visualized coronary arteries. Abdomen: Portal vein:Patent Gallbladder: Within normal limits for CT imaging. Liver: within normal limits. Spleen: within normal limits. Pancreas: within normal limits. Adrenals: within normal limits. Kidneys: Bilateral renal cysts are again seen. There is no hydronephrosis. Bowel: There are fluid-filled and mildly prominent loops of small bowel in the right abdomen and uppe r pelvis which do measure less than 3 cm but are dilated with respect to additional loops of small bowel within the abdomen. There is also mild wall thickening involving a few of the loops of mildly d ilated loops of small bowel. Small bowel loops are dilated up to level of the anastomosis within the upper mid abdomen. There is small amount of fluid and mesenteric edema adjacent to these loops of fluid-filled mildly dilated loops of small bowel. Findings are worrisome for developing small bowel obstruction. Mild wall thickening involving these loops of bowel also raises possibility of ass ociated enteritis. There is fluid seen within the ascending and transverse colon. There are also additional anastomosis of loops of small bowel in the left upper quadrant without evidence of obstruc tion in this region. Appendix: Not visualized. Peritoneum: Negative described above, there is a minimal amount of free fluid primarily adjacent to t he loops of fluid-filled and mildly dilated loops of small bowel with trace amount of free fluid in the pelvis. No fluid collection or free intraperitoneal gas is seen in the abdomen or pelvis. Mesentery and Retroperitoneum: No enlarged mesenteric or retroperitoneal lymph nodes. Abdominal Wall: Small fat-containing umbilical hernia. Pelvis: Reproductive Organs: No pelvic masses. Bladder: Decompressed but otherwise grossly within normal limits. Bones: Multilevel degenerative changes are again seen in the spine. IMPRESSION: 1. Findings compatible with early or low-grade small bowel obstruction with transition point at the l evel of postoperative changes and surgical anastomosis involving loop of small bowel within the mid upper abdomen. 2. Mild bowel wall thickening involving a few of the loops of mildly dilated fluid-filled loops of sm all bowel suggesting associated enteritis. 3. Minimal amount of free fluid in the abdomen.
--- NOTE | 2020-04-26 22:15 | EKG ---
Test Reason : ABD PAIN Blood Pressure : / mmHG Vent. Rate : 070 BPM Atrial Rate : 070 BPM P-R Int : 152 ms QRS Dur : 086 ms QT Int : 392 ms P-R-T Axes : 047 043 067 degrees QTc Int : 423 ms Normal sinus rhythm Possible Left atrial enlargement Nonspecific T wave abnormality Abnormal ECG Confirmed by CHARLENE BEST DO ([id number]), managing editor RADHA HARLEY ([id number]) on 04/26/2020 10:15:40 PM Referred By: Confirmed By:CHARLENE BEST DO
== END 2020-04-04 10:00 | disposition home or self-care (01) ==
LOC: ERS 06:32
DX: K56.609 Unspecified intestinal obstruction, unspecified as to partial versus complete obstruction (principal); R10.13 Epigastric pain; I10 Essential (primary) hypertension; I48.91 Unspecified atrial fibrillation; I49.9 Cardiac arrhythmia, unspecified; F17.220 Nicotine dependence, chewing tobacco, uncomplicated
CPT/HCPCS: 36415; 74177; 80053; 81003; 81015; 83690; 84484; 85025; 93005

== ENCOUNTER 2020-06-17 08:31 | Outpatient (CLI) | payer MEDICARE, OTHER | END 2020-06-17 08:32 | disposition home or self-care (01) | LOC: BICCT 08:31 | PROVIDERS: ATTEND Internal Medicine Hematology & Oncology | DX: C43.4 Malignant melanoma of scalp and neck (principal); C78.4 Secondary malignant neoplasm of small intestine | CPT/HCPCS: 71260; 74177; 82565 ==

== ENCOUNTER 2021-03-03 08:54 | Outpatient (CLI) | payer MEDICARE, OTHER | END 2021-03-03 08:55 | disposition home or self-care (01) | LOC: BICCT 08:54 | PROVIDERS: ATTEND Internal Medicine Hematology & Oncology | DX: C43.4 Malignant melanoma of scalp and neck (principal); C78.4 Secondary malignant neoplasm of small intestine; N28.1 Cyst of kidney, acquired; Z98.890 Other specified postprocedural states | CPT/HCPCS: 71260; 74177; 82565 ==

== ENCOUNTER 2022-02-02 09:09 | Outpatient (CLI) | payer MEDICARE, OTHER ==
[~2022-02-02 09:09] MED LIST: Iopamidol-370 76% 500 ML 1 ML ONE
== END 2022-02-02 09:10 | disposition home or self-care (01) ==
LOC: BICCT 09:09
PROVIDERS: ATTEND Internal Medicine Hematology & Oncology
DX: C43.4 Malignant melanoma of scalp and neck (principal); C78.4 Secondary malignant neoplasm of small intestine
CPT/HCPCS: 71260; 74177; 82565; Q9967

== ENCOUNTER 2023-02-01 07:59 | Outpatient (CLI) | payer MEDICARE, OTHER | END 2023-02-01 08:00 | disposition home or self-care (01) | LOC: BICCT 07:59 | PROVIDERS: ATTEND Internal Medicine Hematology & Oncology | DX: C43.4 Malignant melanoma of scalp and neck (principal); C78.4 Secondary malignant neoplasm of small intestine; C78.00 Secondary malignant neoplasm of unspecified lung | CPT/HCPCS: 71260; 74177; 82565 ==

== ENCOUNTER 2025-01-31 08:26 | Outpatient (CLI) | payer MEDICARE, OTHER ==
[2025-01-31 09:34] LABS: Estimated GFR - POC 70.0
== END 2025-01-31 08:27 | disposition home or self-care (01) ==
LOC: CT 08:26
PROVIDERS: ATTEND Physician Assistant Medical
DX: R10.9 Unspecified abdominal pain (principal); R11.0 Nausea; Z87.19 Personal history of other diseases of the digestive system; Z85.89 Personal history of malignant neoplasm of other organs and systems
CPT/HCPCS: 36415; 74178; 82565